=== PATIENT | female | born 1995 | race Caucasian/White ===

== ENCOUNTER 2022-08-14 08:34 | Emergency (ER) | payer OTHER ==
[2022-08-14] MEDS ORDERED: predniSONE 20 MG TAB ONE (09:08)
[2022-08-14] MEDS ORDERED: Albuterol Sulfate 2.5 mg/0.5 ml Neb ONE (09:31)
[2022-08-14 10:59] LABS: SARS-CoV-2 NAA Rapid Test Not Detected (NotDetected)
== END 2022-08-14 10:04 | disposition home or self-care (01) ==
LOC: ERS 08:34
DX: J20.9 Acute bronchitis, unspecified (principal); Z20.822 Contact with and (suspected) exposure to COVID-19
CPT/HCPCS: 71046; 93005; 94640; J7512; J7611; J7620